=== PATIENT | female | born 1995 | race African-American/Black ===

== ENCOUNTER 2019-05-25 20:42 | Emergency (ER) | payer OTHER ==
[~2019-05-25] VITALS: Ht 167.6 cm; Wt 72.7 kg
[2019-05-25 23:45] VITALS: BP 124/77
== END 2019-05-25 23:46 | disposition home or self-care (01) | DRG 563 ==
LOC: ED 20:42
DX: S39.012A Strain of muscle, fascia and tendon of lower back, initial encounter (principal); V44.6XXA Car passenger injured in collision with heavy transport vehicle or bus in traffic accident, initial encounter